=== PATIENT | female | born 1955 | race Caucasian/White ===

== ENCOUNTER 2016-08-28 16:23 | Inpatient (IN) | payer BC ==
--- NOTE | ~2016-08-28 | HP ---
History And Physical [place] [id number] [facility] [place]. [address] NAME: GERHARD CARVAJAL : 57 STATUS : ADM IN [facility]#: [id number] AGE: 60 ADM/REG DATE : 08/28/16 MR#: [id number] REPORT SERV DATE: 08/29/16 DICTATED BY: KINSEY STRATTON DATE: 08/28/16 REPORT STATUS : Draft TRANSCRIBED BY: MODMary DATE: 08/28/16 DATE OF ADMISSION: 08/28/2016 REASON FOR ADMISSION: Hypertensive emergency. CHIEF COMPLAINT: High blood pressure. HISTORY OF PRESENT ILLNESS: The patient is a 60-year-old female, who was admitted in January for very similar picture and was noted to have an acute stroke at that time. However, this time around, patient had one day of headaches at work, she had TIA symptoms which quickly resolved, and was noted to be very hypertensive, they have tried hydralazine, now patient is on a nicardipine drip, and blood pressure is at 170. The patient's symptoms have all resolved. The patient notes that her blood pressure has been elevated since the age of 31. She was admitted in January and had a secondary workup, which showed negative renal artery stenosis on ultrasound. I do not see any metanephrines checked, however. The patient does give a periodic or episodic elevation in blood pressure. Otherwise, no further complaints. PAST MEDICAL HISTORY: The patient notes that she has a history of cardiomegaly, 50% carotid artery stenoses bilaterally, grade 1, history of embolic stroke, hyperlipidemia, and hypertension. MEDICATIONS: Statin, aspirin, Coreg. ALLERGIES: NO KNOWN DRUG ALLERGIES. FAMILY HISTORY: Mother had hypertension, siblings have hypertension. SOCIAL HISTORY: The patient is currently single. She does not smoke, drink, or use any illicit drug use. REVIEW OF SYSTEMS: All pertinent review of systems reviewed and are otherwise negative. PHYSICAL EXAMINATION: VITAL SIGNS: The patient is currently afebrile, heart rate 83, blood pressure 171/60s, respiratory rate normal, and oxygen saturation 96% on room air. GENERAL: The patient is alert and oriented x3, no acute distress. HEENT: No JVD, no carotid bruits. PULMONARY: Clear to auscultation bilaterally. CARDIAC: Regular rate, no murmurs. ABDOMEN: Soft, nontender, nondistended. EXTREMITIES: There is no delay in peripheral pulses bilaterally in the upper or lower extremity. NEUROLOGIC: No focal neurological deficits. IMAGING DATA: CT scan of the brain shows an old lacunar infarct, but no acute infarct. History And Physical [place] [address] [place]. [address] NAME: GERHARD CARVAJAL : 57 STATUS : ADM IN PAT#: [id number] AGE: 60 ADM/REG DATE : 08/28/16 MR#: [id number] REPORT SERV DATE: 08/29/16 DICTATED BY: KINSEY STRATTON DATE: 08/28/16 REPORT STATUS : Draft TRANSCRIBED BY: MODL DATE: 08/28/16 Echocardiogram in January 2016 shows normal LV size and systolic function, ejection fraction of 65%, no wall motion abnormalities, mild diastolic dysfunction, right heart is normal. No valvular disease. As noted above, CT of the brain today shows no acute abnormality, encephalomalacia in the inferior left temporal lobe compatible with old infarct. CBC normal. CMP shows a BUN of 25, but otherwise normal. ASSESSMENT AND PLAN: Mrs. Carvajal is a 60-year-old female with a past medical history of what seems to be episodic hypertension on one agent therapy namely Coreg. 1. Hypertensive emergency: At this moment, the patient is on a nicardipine drip, we will start amlodipine, we will discontinue Coreg and start labetalol for the alpha blocking agents also, and start hydralazine. She has had a renal ultrasound in the past which is negative, we will obtain a 24 hour fractionated urinary metanephrine and normetanephrine testing for pheochromocytoma. 2. Diet: The patient is able to have a normal diet. 3. Goals of care: The patient is currently full code. HFQ/MODL Kinsey Stratton MD / [id number] CC: Niki Ponce MD
--- NOTE | ~2016-08-28 | DS ---
Discharge Summary [facility] [address] [facility] [place]. [address] NAME: GERHARD BROWNE : 57 STATUS : DIS IN PAT#: [id number] AGE: 60 ADM/REG DATE : 08/28/16 MR#: [id number] REPORT SERV DATE: 09/01/16 DICTATED BY: JOHNATHAN COLLAZO DATE: 08/31/16 REPORT STATUS : Draft TRANSCRIBED BY: FRANDY DATE: 08/31/16 ADMISSION DATE: 08/28/2016 DISCHARGE DATE: 08/31/2016 CONSULTATIONS: None. PROCEDURES: None. DISCHARGE DIAGNOSES: 1. Hypertensive emergency. 2. Malignant hypertension. 3. History of cerebrovascular accident without neurologic sequelae. 4. Dyslipidemia. DISCHARGE CONDITION: Stable. HISTORY OF PRESENT ILLNESS: For detailed HPI please make reference to Dr. Stratton's dictation on 08/28/2016. HOSPITAL COURSE: In summary, this is a 60-year-old female who presented to the emergency room on 08/28/2016 with concerns of significantly elevated high blood pressure. In the emergency room, the patient was noted to have blood pressure in the 200. The patient was started on Cardizem drip and was continued on p.o. antihypertensives. The patient was admitted under the cryptoanalysis teacher care in the ICU. The patient's blood pressure gradually trended down into the 170s. The patient nicardipine was subsequently weaned off and continued on p.o. antihypertensives. The patient was subsequently transferred to the cardiac telemonitoring floor. While on the floor the patient's blood pressure medications were adjusted as appropriate. At the time of discharge, the patient's blood pressure remained stable in the 130s. The patient was advised to continue prescribed p.o. antihypertensives of Norvasc, hydrochlorothiazide, and labetalol, and to follow up with primary care physician as an outpatient. IMAGING: CT brain. Impression: No definitive acute intracranial abnormality identified. Interval development of encephalomalacia in the inferior left temporal lobe compatible with an old infarct. Also noted was a tiny old lacunar infarct involving the anterior limb of the right which has developed since 02/05/2016. DISCHARGE MEDICATIONS: 1. Norvasc 10 mg p.o. daily. 2. Hydrochlorothiazide 25 mg p.o. daily. 3. Aspirin 325 mg p.o. daily. 4. Labetalol 200 mg p.o. b.i.d. 5. Pravastatin 40 mg p.o. daily. FOLLOWUP: The patient to follow up with primary care physician for further workup of secondary etiology of hypertension. The patient was advised to follow up with primary care Discharge Summary [place] [address] [place] [address] NAME: GERHARD BROWNE : 57 STATUS : DIS IN PAT#: [id number] AGE: 60 ADM/REG DATE : 08/28/16 MR#: [id number] REPORT SERV DATE: 09/01/16 DICTATED BY: JOHNATHAN COLLAZO DATE: 08/31/16 REPORT STATUS : Draft TRANSCRIBED BY: FRANDY DATE: 08/31/16 physician within one to two weeks of discharge. DISCHARGE DIET: Low-salt diet. The patient was extensively counseled on compliance with low salt diet as well as antihypertensive medication. A total of 35 minutes were used to prepare this patient's discharge, reconcile medication, and advised the patient on discharge plans and followup. BOBO/FRANDY Johnathan Collazo MD / [id number] CC: Johnathan Collazo MD
[2016-08-28 16:00] LABS: BASOPHILS 0.3 %; BASOPHILS ABSOLUTE 0.02 10/3/uL (0.0-0.16); EOSINOPHILS ABSOLUTE 0.14 10/3/uL (0.0-0.53); ER CBC TAT 0 Hrs 03 Mins; HEMATOCRIT 39.1 % (36.0-48.0); HEMOGLOBIN 13.2 g/dL (12.0-16.0); IMMATURE GRANULOCYTES 0.1 %; IMMATURE GRANULOCYTES ABSOLUTE 0.01 10/3/uL (0.0-0.11); LYMPHOCYTES 24.7 %; LYMPHOCYTES ABSOLUTE 1.74 10/3/uL (0.67-4.30); MANUAL DIFF NO %; MEAN CORPUS HGB CONC 33.8 g/dL (32.0-36.0); MEAN CORPUSCULAR HEMOGLOB 27.4 pg (26.0-34.0); MEAN CORPUSCULAR VOLUME 81.3 fL (80-100); MEAN PLATELET VOLUME 11.2 fL (9.2-13.0); MONOCYTES 7.2 %; MONOCYTES ABSOLUTE 0.51 10/3/uL (0.21-1.20); NEUTROPHILS 65.7 %; NEUTROPHILS ABSOLUTE 4.62 10/3/uL (2.02-8.40); PLATELET COUNT 229 10/3/uL (150-400); RBC DISTRIBUTION WIDTH 14.7 % (12.0-16.0); RED CELL COUNT 4.81 10/6/uL (4.0-5.6)
[2016-08-28 16:07] LABS: INTERNATIONAL NORMAL RATI 1.1 UNITS (-); PARTIAL THROMBO TIME 29.8 SEC (22.5-37.2); PROTIME (NOT ORD) 13.8 SEC (12.0-14.5)
[2016-08-28 16:13] LABS: CALCIUM, SERUM 8.9 MG/DL (8.5-10.4); CHLORIDE, SERUM 109 MMOL/L (96-112); CO2 (CARBON DIOXIDE) 27 MMOL/L (24-34); GLUCOSE, SERUM 97 MG/DL (60-99); POTASSIUM, SERUM 3.8 MMOL/L (3.5-5.3); SGOT(AST) 22 U/L (5-40); SGPT(ALT) 32 U/L (5-65); SODIUM, SERUM 144 MMOL/L (135-148); TOTAL BILIRUBIN 0.5 MG/DL (0-1.2)
[2016-08-28 16:14] LABS: ALBUMIN 3.9 G/DL (3.5-5.0); ALKALINE PHOSPHATASE 86 U/L (45-117); BUN (BLOOD UREA NITROGEN) 25 MG/DL (6-23); CREATININE 0.92 MG/DL (0.55-1.02); GFR AFRICAN AMERICAN 79 ML/MIN (>=60); GFR NON AFRICAN AMERICAN 68 ML/MIN (>=60); GLOBULIN 3.9 G/DL (2.5-4.1); TOTAL PROTEIN 7.8 G/DL (6.0-8.5)
[~2016-08-28 16:23] MED LIST: ACET500CAP PO; ASA5GR PO; COREG6 PO; HYDROCHLOROT25 MG PO; PRAVACHOL40 MG PO; PRIN10 PO; PRIN20 PO
[2016-08-28] MEDS ORDERED: ASABAYER PO (16:52)
[2016-08-28] MEDS ORDERED: PRAVACHOL40 MG PO (16:53)
[2016-08-28] MEDS ORDERED: COREG6 PO (16:53)
[2016-08-28 17:54] LABS: TROPONIN I <0.02 NG/ML (<0.05)
[2016-08-29 05:12] LABS: BASOPHILS 0.1 %; BASOPHILS ABSOLUTE 0.01 10/3/uL (0.0-0.16); EOSINOPHILS 1.4 %; HEMATOCRIT 40.3 % (36.0-48.0); HEMOGLOBIN 13.3 g/dL (12.0-16.0); IMMATURE GRANULOCYTES 0.3 %; IMMATURE GRANULOCYTES ABSOLUTE 0.02 10/3/uL (0.0-0.11); LYMPHOCYTES 23.7 %; LYMPHOCYTES ABSOLUTE 1.64 10/3/uL (0.67-4.30); MEAN CORPUSCULAR HEMOGLOB 27.5 pg (26.0-34.0); MEAN CORPUSCULAR VOLUME 83.4 fL (80-100); MEAN PLATELET VOLUME 10.7 fL (9.2-13.0); MONOCYTES 7.8 %; MONOCYTES ABSOLUTE 0.54 10/3/uL (0.21-1.20); NEUTROPHILS 66.7 %; NEUTROPHILS ABSOLUTE 4.61 10/3/uL (2.02-8.40); PLATELET COUNT 211 10/3/uL (150-400); RBC DISTRIBUTION WIDTH 14.7 % (12.0-16.0); RED CELL COUNT 4.83 10/6/uL (4.0-5.6); WHITE BLOOD CELLS 6.9 10/3/uL (4.5-10.5)
[2016-08-29 05:13] LABS: MANUAL DIFF NO %
[2016-08-29 05:27] LABS: BUN (BLOOD UREA NITROGEN) 23 MG/DL (6-23); CALCIUM, SERUM 8.8 MG/DL (8.5-10.4); CHLORIDE, SERUM 108 MMOL/L (96-112); CO2 (CARBON DIOXIDE) 24 MMOL/L (24-34); CREATININE 0.78 MG/DL (0.55-1.02); GFR AFRICAN AMERICAN 96 ML/MIN (>=60); GFR NON AFRICAN AMERICAN 83 ML/MIN (>=60); GLUCOSE, SERUM 96 MG/DL (60-99); PHOSPHORUS, SERUM 3.5 MG/DL (2.5-4.5); POTASSIUM, SERUM 3.4 MMOL/L (3.5-5.3); SODIUM, SERUM 145 MMOL/L (135-148)
[2016-08-30 07:16] LABS: BASOPHILS 0.3 %; BASOPHILS ABSOLUTE 0.02 10/3/uL (0.0-0.16); EOSINOPHILS 2.7 %; EOSINOPHILS ABSOLUTE 0.18 10/3/uL (0.0-0.53); HEMATOCRIT 41.5 % (36.0-48.0); HEMOGLOBIN 13.7 g/dL (12.0-16.0); IMMATURE GRANULOCYTES 0.2 %; IMMATURE GRANULOCYTES ABSOLUTE 0.01 10/3/uL (0.0-0.11); LYMPHOCYTES 27.6 %; LYMPHOCYTES ABSOLUTE 1.83 10/3/uL (0.67-4.30); MEAN CORPUSCULAR HEMOGLOB 27.8 pg (26.0-34.0); MEAN CORPUSCULAR VOLUME 84.3 fL (80-100); MEAN PLATELET VOLUME 10.4 fL (9.2-13.0); MONOCYTES ABSOLUTE 0.73 10/3/uL (0.21-1.20); NEUTROPHILS 58.2 %; NEUTROPHILS ABSOLUTE 3.86 10/3/uL (2.02-8.40); PLATELET COUNT 206 10/3/uL (150-400); RBC DISTRIBUTION WIDTH 14.9 % (12.0-16.0); RED CELL COUNT 4.92 10/6/uL (4.0-5.6); WHITE BLOOD CELLS 6.6 10/3/uL (4.5-10.5)
[2016-08-30 07:18] LABS: MANUAL DIFF NO %
[2016-08-30 07:28] LABS: BUN (BLOOD UREA NITROGEN) 26 MG/DL (6-23); CALCIUM, SERUM 8.9 MG/DL (8.5-10.4); CHLORIDE, SERUM 107 MMOL/L (96-112); CO2 (CARBON DIOXIDE) 26 MMOL/L (24-34); CREATININE 1.09 MG/DL (0.55-1.02); GFR AFRICAN AMERICAN 64 ML/MIN (>=60); GFR NON AFRICAN AMERICAN 56 ML/MIN (>=60); GLUCOSE, SERUM 90 MG/DL (60-99); PHOSPHORUS, SERUM 4.2 MG/DL (2.5-4.5); POTASSIUM, SERUM 3.8 MMOL/L (3.5-5.3); SODIUM, SERUM 144 MMOL/L (135-148)
[2016-08-31 05:16] LABS: BUN (BLOOD UREA NITROGEN) 29 MG/DL (6-23); CHLORIDE, SERUM 105 MMOL/L (96-112); CO2 (CARBON DIOXIDE) 25 MMOL/L (24-34); CREATININE 1.18 MG/DL (0.55-1.02); GFR AFRICAN AMERICAN 58 ML/MIN (>=60); GFR NON AFRICAN AMERICAN 50 ML/MIN (>=60); GLUCOSE, SERUM 94 MG/DL (60-99); PHOSPHORUS, SERUM 4.9 MG/DL (2.5-4.5); POTASSIUM, SERUM 3.7 MMOL/L (3.5-5.3); SODIUM, SERUM 141 MMOL/L (135-148)
[2016-08-31 05:32] LABS: BASOPHILS 0.5 %; BASOPHILS ABSOLUTE 0.03 10/3/uL (0.0-0.16); EOSINOPHILS 2.4 %; EOSINOPHILS ABSOLUTE 0.16 10/3/uL (0.0-0.53); HEMATOCRIT 41.4 % (36.0-48.0); HEMOGLOBIN 13.7 g/dL (12.0-16.0); IMMATURE GRANULOCYTES 0.2 %; IMMATURE GRANULOCYTES ABSOLUTE 0.01 10/3/uL (0.0-0.11); LYMPHOCYTES 25.8 %; LYMPHOCYTES ABSOLUTE 1.72 10/3/uL (0.67-4.30); MEAN CORPUS HGB CONC 33.1 g/dL (32.0-36.0); MEAN CORPUSCULAR HEMOGLOB 27.8 pg (26.0-34.0); MEAN CORPUSCULAR VOLUME 84.1 fL (80-100); MONOCYTES 10.8 %; MONOCYTES ABSOLUTE 0.72 10/3/uL (0.21-1.20); NEUTROPHILS 60.3 %; NEUTROPHILS ABSOLUTE 4.02 10/3/uL (2.02-8.40); PLATELET COUNT 214 10/3/uL (150-400); RBC DISTRIBUTION WIDTH 14.9 % (12.0-16.0); RED CELL COUNT 4.92 10/6/uL (4.0-5.6); WHITE BLOOD CELLS 6.7 10/3/uL (4.5-10.5)
[2016-08-31 05:35] LABS: MANUAL DIFF NO %
[2016-08-31] MEDS ORDERED: NORV10 PO (10:10)
[2016-08-31] MEDS ORDERED: TRAN200 PO (10:11)
[2016-08-31] MEDS ORDERED: HYDROCHLOROT25 MG PO (10:11)
[2016-09-04 21:22] LABS: METANEPHRINE [CALC] 0.048 mg/24h (0.052-0.341); NORMETANEPHRINE [CALC] 0.282 mg/24h (0.088-0.444); TOTAL METANEPHRINES [CALC] 0.33 mg/24h (0.140-0.785)
== END 2016-08-31 10:55 | disposition home or self-care (01) | DRG 305 ==
LOC: ER 16:23 → CDU1 17:51 → ER/OF 18:43 → CCU 20:27 → 2SO 08-29 19:15
PROVIDERS: Emergency Medicine; Hospitalist; Internal Medicine; Internal Medicine Critical Care Medicine
DX: I16.1 Hypertensive emergency (principal); I65.23 Occlusion and stenosis of bilateral carotid arteries; E78.5 Hyperlipidemia, unspecified; Z86.73 Personal history of transient ischemic attack (TIA), and cerebral infarction without residual deficits; Z82.49 Family history of ischemic heart disease and other diseases of the circulatory system
CPT/HCPCS: 70450; 80048; 80053; 83735; 83835; 84100; 84132; 84484; 85025; 85610; 85730; 87641; 93005; 96374; 99285; A9270-GY; J0360